=== PATIENT | female | born 1975 | race Two or more races ===

== ENCOUNTER → 2020-09-20 | Outpatient (CLI) | payer SELFPAY | LOC: M LABSMTC 10:23 | PROVIDERS: ATTEND Pediatrics | DX: Z20.828 Contact with and (suspected) exposure to other viral communicable diseases (principal) ==

== ENCOUNTER → 2020-10-18 | Outpatient (CLI) | payer OTHER ==
--- NOTE | 2020-10-18 12:59 | REP ---
INDICATION: PAIN IN RIGHT KNEE COMPARISON: None. TECHNIQUE: Five views right knee. FINDINGS: There is no evidence of acute fracture, dislocation, or intrinsic bone disease.The joint spaces are unremarkable. I see no evidence of a joint effusion. IMPRESSION: Negative right knee series. <Electronically signed by Warren Wolfe > 10/18/20 [id number]
== END ==
LOC: M LAB 12:36
PROVIDERS: ATTEND Nurse Practitioner Family
DX: M25.561 Pain in right knee (principal)

== ENCOUNTER → 2020-10-31 | Outpatient (CLI) | payer OTHER ==
[2020-10-31 13:29] LABS: ALBUMIN 4.1 GM/DL (3.2-5.2); ALT/SGPT 28 U/L (12-78); BILIRUBIN,TOTAL 0.7 MG/DL (0.2-1.0); BLOOD UREA NITROGEN 12 MG/DL (7-18); CALCIUM LEVEL 9.4 MG/DL (8.5-10.1); CARBON DIOXIDE LEVEL 32 MEQ/L (21-32); CHLORIDE LEVEL 104 MEQ/L (98-107); CREATININE FOR GFR 0.96 MG/DL (0.55-1.30); GLOMERULAR FILTRATION RATE > 60.0 (>58); GLUCOSE, FASTING 82 MG/DL (70-100); POTASSIUM SERUM 4.4 MEQ/L (3.5-5.1); SODIUM LEVEL 140 MEQ/L (136-145)
== END ==
LOC: M LAB 12:16
PROVIDERS: ATTEND Student in an Organized Health Care Education/Training Program
DX: M25.561 Pain in right knee (principal); Z83.79 Family history of other diseases of the digestive system; Z87.892 Personal history of anaphylaxis

== ENCOUNTER → 2020-11-22 | Outpatient (REF) | payer OTHER | LOC: M SFHCLERA 13:24 | PROVIDERS: ATTEND Nurse Practitioner Family | DX: N89.8 Other specified noninflammatory disorders of vagina (principal) | CPT/HCPCS: 81002; 81025; 87070; 87086; G0463 ==

== ENCOUNTER → 2020-12-15 | Outpatient (CLI) | payer OTHER ==
--- NOTE | 2020-12-15 15:27 | REP ---
INDICATION: RT ANTERIOR KNEE PAIN. COMPARISON: Radiographs 10/18/2020. TECHNIQUE: Multiple sequences obtained in the axial, coronal and sagittal planes. FINDINGS: Menisci: Intact, no tear. Cruciate ligaments: Intact. Collateral ligaments: Intact. Extensor mechanism/patellar retinacula: Intact. Cartilage: There is moderate chondromalacia of the medial patellar facet. Bone marrow: There is bone marrow edema in the medial patellar facet. Joint fluid: There is a small joint effusion. Popliteal region: No cyst. IMPRESSION: Moderate chondromalacia medial patellar facet with associated marrow edema in the underlying patella. Small joint effusion. <Electronically signed by Warren Wolfe > 12/15/20 [id number]
== END ==
LOC: M PLARAD 11:12
PROVIDERS: ATTEND Student in an Organized Health Care Education/Training Program
DX: M94.261 Chondromalacia, right knee (principal)